=== PATIENT | female | born 1945 | race Caucasian/White ===

== ENCOUNTER → 2020-06-09 | Outpatient (CLI) | payer MEDICARE, OTHER | LOC: HEART 5 05-13 13:30 → US 05-13 14:00 → CT 05-13 14:00 → HEART 5 06-05 13:30 → CT 12:58 → HEART 5 13:30 | DX: Z01.818 Encounter for other preprocedural examination (principal); I87.1 Compression of vein; I87.2 Venous insufficiency (chronic) (peripheral); I65.23 Occlusion and stenosis of bilateral carotid arteries | CPT/HCPCS: 93880; 93970 ==